=== PATIENT | female | born 1950 | race Caucasian/White ===

== ENCOUNTER 2023-06-01 20:14 | Emergency (ER) | payer MEDICARE ==
[~2023-06-01] VITALS: Ht 157.5 cm; Wt 50.0 kg
[2023-06-01 20:51] VITALS: BP 153/88; PULSE 110; RESP 12; TEMP 98.8
[2023-06-02] MEDS: BACITRACIN 0.9 GM PACKET OINTMENT TP ONE (01:29)
[2023-06-02] MEDS: ACETAMINOPHEN 325 MG TABLET PO ONE (01:29)
[2023-06-02] MEDS ORDERED: ACET-2247 PO (02:21)
[2023-06-02] MEDS ORDERED: IBUP-1492 PO (02:21)
== END 2023-06-02 03:49 | disposition left against medical advice (07) ==
LOC: EDSEX 20:14 → EMS 20:14
DX: S42.301A Unspecified fracture of shaft of humerus, right arm, initial encounter for closed fracture (principal); W18.09XA Striking against other object with subsequent fall, initial encounter; Y93.89 Activity, other specified; Y92.89 Other specified places as the place of occurrence of the external cause; Y99.8 Other external cause status
CPT/HCPCS: 29105; 70450; 72125; 99284